=== PATIENT | male | born 1945 | race Caucasian/White ===

== ENCOUNTER 2024-03-08 22:57 | Emergency (ER) | payer OTHER ==
[2024-03-08 23:16] VITALS: BMI 24.4
[2024-03-09] MEDS: MINERAL OIL ENEMA 133 ML ENEMA RC ONE (00:25)
[2024-03-09] MEDS: SODIUM CHLORIDE 0.9% 500 ML INFUS.BAG IV ONE (01:40)
[2024-03-09] MEDS: ONDANSETRON 4 MG/2 ML VIAL IVPUSH ONE (01:52)
[2024-03-09] MEDS ORDERED: ONDANSETRON 4 MG/2 ML VIAL ONE (02:20)
[2024-03-09 02:21] LABS: BASO % 0.2 % (0-2.0); EOS % 0.1 % (0-4.5); HEMATOCRIT 28.2 % (35.4-49); HEMOGLOBIN 9.7 GM/dL (11.7-16.9); LYMPH % 4.5 % (8-40); MCH 31.2 pg (25.7-33.7); MCHC 34.4 g/dl (32.0-35.9); MEAN CELL VOLUME 90.8 fl (80-96); MEAN PLT VOLUME 6.8 fl (7.5-11.1); MONO % 7.7 % (3.8-10.2); NEUT % 87.5 % (42.8-82.8); PLATELET COUNT 246 10^3/uL (134-434); RBC 3.11 M/mm3 (4.00-5.60); RDW 13.5 % (11.9-15.9); WHITE BLOOD COUNT 12.3 K/mm3 (4.0-10.0)
[2024-03-09 02:47] LABS: POTASSIUM 3.5 mmol/L (3.5-5.1)
[2024-03-09 02:49] LABS: CALCIUM 8.5 mg/dL (8.5-10.1)
[2024-03-09 02:50] LABS: ALBUMIN 3.2 g/dl (3.4-5.0); BLOOD UREA NITROGEN 15.7 mg/dL (7-18)
[2024-03-09 02:54] LABS: BILIRUBIN,TOTAL 1.4 mg/dL (0.2-1); CREATININE 0.8 mg/dL (0.55-1.3)
[2024-03-09] MEDS: METOCLOPRAMIDE HCL INJECTION 10 MG/2 ML VIAL IVPB ONE (03:22)
[2024-03-09] MEDS ORDERED: METOCLOPRAMIDE HCL INJECTION 10 MG/2 ML VIAL ONE (03:23)
[2024-03-09 06:31] LABS: EPI CELLS 3 /uL (0-25.1); HYALINE CASTS 0 /uL (0-3.1); PH,URINE 5.5 (5.0-8.0); URINE APPEARANCE CLEAR; URINE BACTERIA 0 /uL (0-1359); URINE BILIRUBIN NEGATIVE (NEGATIVE); URINE COLOR DK YELLOW; URINE GLUCOSE (UA) NEGATIVE (NEGATIVE); URINE KETONE TRACE (NEGATIVE); URINE LEUK ESTERASE NEGATIVE (NEGATIVE); URINE NITRITE NEGATIVE (NEGATIVE); URINE PROTEIN NEGATIVE (NEGATIVE); URINE RBC 304 /uL (0-23.9); URINE WBC 8 /uL (0-25.8)
[2024-03-09 11:49] VITALS: BP 128/72; PULSE 68; RESP 17; TEMP 97.6
== END 2024-03-09 10:45 | disposition home or self-care (01) ==
LOC: JER 22:57
PROC: 3E030GC Introduction of Other Therapeutic Substance into Peripheral Vein, Open Approach (ICD-10-PCS; principal; 2024-03-09)
PROC: 3E030GC Introduction of Other Therapeutic Substance into Peripheral Vein, Open Approach (ICD-10-PCS; 2024-03-09)
DX: K59.00 Constipation, unspecified (principal); R33.9 Retention of urine, unspecified; R10.9 Unspecified abdominal pain
CPT/HCPCS: 36415; 71275-TC; 74018-TC-FY; 74174-TC; 75635-TC; 80053; 81003; 84484; 85025; 87086; 93005; 93010; 99285-25; Q9967